=== PATIENT | female | born 2000 | race American Indian/Alaskan Native ===

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

== ENCOUNTER 2022-05-07 15:01 | Emergency (ER) | payer MEDICAID ==
--- NOTE | 2022-05-07 21:16 | Emergency Department Report ---
ED HPI - General Chief complaint: Abdominal Pain Stated complaint: HEARTBEAT Time Seen by Provider: 05/07/22 20:44 Source: patient Mode of arrival: Ambulatory Limitations: No Limitations - History of Present Illness Initial comments: 21-year-old black female with no past medical history presents to the emergency department for evaluation of heart tones. She states that she was seen by her [employer] [facility] today, and the [employer] performed an ultrasound with a Doppler in the office and was unable to hear heart tones. She states that her [employer] sent her here for ultrasound. Patient denies abdominal pain, dysuria, vaginal discharge, vaginal bleeding, and fever. Patient states that her last menstrual period was on January 29. She states that she is G2, P0 with a history of a miscarriage and thinks that she is about 12 weeks gestation. MD Complaint: other (No heart tones heard on office Doppler) -: Sudden Severity scale (0 -10): 0 Associated symptoms: denies: nausea/vomiting, vaginal bleeding, vaginal discharge, abdominal pain, dysuria, headache, vision changes, malaise, dysparuenia, rash, seizure, shortness of breath, syncope, weakness Vaginal bleeding: none :: Yes Number of weeks : 12 OB History - Current : no complications OB History - Previous Pregnancies: miscarriage Last menstrual period: 01/29/22 Pre-[facility] care: followed by OB - Related Data : 2 Para: 0 Ab: 1 (Miscarriage) Allergies Allergy/AdvReac Type Severity Reaction Status Date / Time Penicillins Allergy Hives,FACIAL Unverified 05/07/22 16:07 SWELLING ED Review of Systems ROS: Stated complaint: HEARTBEAT Other details as noted in HPI Comment: All other systems reviewed and negative Constitutional: denies: chills, fever ENT: denies: congestion Respiratory: denies: shortness of breath Cardiovascular: denies: chest pain, palpitations Gastrointestinal: denies: abdominal pain, nausea, vomiting Genitourinary: denies: urgency, dysuria Neurological: denies: headache, weakness ED Past Medical Hx - Past Medical History Previous Medical History?: No - Surgical History Past Surgical History?: No ED Physical Exam - General Limitations: No Limitations General appearance: alert, in no apparent distress - Head Head exam: Present: atraumatic, normocephalic - Eye Eye exam: Present: normal appearance. Absent: conjunctival injection, periorbital swelling, periorbital tenderness - ENT ENT exam: Present: normal exam, normal orophraynx - Neck Neck exam: Present: normal inspection. Absent: tenderness - Respiratory Respiratory exam: Present: normal lung sounds bilaterally. Absent: respiratory distress, wheezes, rales, rhonchi, stridor, chest wall tenderness - Cardiovascular Cardiovascular Exam: Present: regular rate, normal heart sounds - GI/Abdominal GI/Abdominal exam: Present: soft, normal bowel sounds. Absent: distended, tenderness, guarding, rebound, rigid - Extremities Exam Extremities exam: Present: normal inspection, full ROM, normal capillary refill. Absent: pedal edema, joint swelling, calf tenderness - Back Exam Back exam: Present: normal inspection. Absent: CVA tenderness (R), CVA tenderness (L) - Neurological Exam Neurological exam: Present: alert, oriented X3 - Psychiatric Psychiatric exam: Present: normal affect, normal mood - Skin Skin exam: Present: warm, dry, intact, normal color ED Course Vital Signs 05/07/22 16:04 Temperature 98.6 F Pulse Rate 96 H Respiratory 18 Rate Blood Pressure 164/71 [Left] O2 Sat by Pulse 99 Oximetry ED Medical Decision Making - Radiology Data Radiology results: report reviewed, image reviewed ultrasound: Impression: 1. Gestational sac with pole is noted. Start[place]-rump length correlates to an 8-week 5-day gestation. No heartbeat is identified. - Medical Decision Making 21-year-old black female with no past medical history presents to the emergency department for evaluation of heart tones. She states that she was seen by her [employer] today, and the [employer] performed an ultrasound with a Doppler in the office and was unable to hear heart tones. She states that her [employer] sent her here for ultrasound. Patient denies abdominal pain, dysuria, vaginal discharge, vaginal bleeding, and fever. Patient states that her last menstrual period was on January 29. She states that she is G2, P0 with a history of a miscarriage and thinks that she is about 12 weeks gestation. Physical exam unremarkable. Ultrasound positive for gestational sac that measures at 8 weeks but no heart tones. Patient will be discharged home and advised to have repeat hCG level in 2 or 3 days and follow-up with her [facility] [employer] for further evaluation and management. She is advised to return to the emergency department as needed. She verbalizes understanding of and agreement with plan of care. Critical care attestation.: If time is entered above; I have spent that time in minutes in the direct care of this critically ill patient, excluding procedure time. ED Disposition Clinical Impression: heart tones not heard Disposition: HOME / SELF CARE / HOMELESS Is pt being admited?: No Does the pt Need Aspirin: No Condition: Stable Instructions: Abdominal Pain (ED) Additional Instructions: Your hormone level was 3798 today, and your ultrasound showed a inside your uterus at 8 weeks but there was no heart tones noted. You should follow-up with your [employer] so that she can have a repeat preg yoselin hormone level in 2 to 3 days to determine if level is going up or down. Return to the emergency department as needed. Referrals: ELA DUDLEY MD [Referring] - 3-5 Days Time of Disposition: 21:21
[2022-05-07 21:39] VITALS: BP 116/66
--- NOTE | 2022-05-08 08:05 | Ultrasound Report ---
ULTRASOUND OBSTETRIC INDICATION / CLINICAL INFORMATION: problems. Clinical Gestational Age (GA) in weeks, days: 12, 4 TECHNIQUE: Transabdominal. COMPARISON: None available. FINDINGS: Gestational sac with pole is identified. [place]-rump length measures 2.19 cm correlating to an 8 week 6 day gestation. No heartbeat is identified ADNEXA: No significant abnormality. FREE FLUID: None. ADDITIONAL FINDINGS: None. IMPRESSION: 1. Gestational sac with pole is noted. [place]-rump length correlates to an 8 week 6 day gestatio n. No heartbeat is identified. Signer Name: Fredi Ledezma MD Signed: 05/07/2022 5:37 PM Workstation Name: [id number]
== END 2022-05-07 21:40 | disposition home or self-care (01) ==
LOC: ED 15:01
DX: O76 Abnormality in fetal heart rate and rhythm complicating labor and delivery (principal); Z88.0 Allergy status to penicillin; Z3A.12 12 weeks gestation of pregnancy
CPT/HCPCS: 36415; 76801; 84702; 99284